=== PATIENT | male | born 1995 | race Two or more races ===

== ENCOUNTER 2024-05-11 12:31 | Emergency (ER) | payer BC, OTHER ==
[~2024-05-11] VITALS: Ht 175.3 cm; Wt 153.3 kg
[2024-05-11] MEDS: cloNIDine HCL 0.1 MG TAB PO ONE (12:41)
[2024-05-11] MEDS ORDERED: LISI20TA56 PO (12:41)
[2024-05-11 13:09] LABS: Basophils # (auto) 0.1 10 ^3/uL (0-0.2); Eosinophils # (auto) 0.2 10 ^3/uL (0-0.8); Hemoglobin 14.1 g/dL (13.5-17.5); Lymphocytes # (auto) 1.4 10 ^3/uL (0.4-5.4); Monocytes # (auto) 0.5 10 ^3/uL (0-1.3); Monocytes % (auto) 7.1 % (0.0-12.0); Nucleated Red Blood Cells % 0.1 %
[2024-05-11 13:12] LABS: Basophils % (auto) 1.4 % (0.0-2.0); Eosinophils % (auto) 2.7 % (0.0-7.0); Hematocrit 42.1 % (41.0-53.0); Lymphocytes % (auto) 21.6 % (10.0-50.0); Mean Corpuscular Hemoglobin 26.8 pg (28.0-32.0); Mean Corpuscular Hgb Conc. 33.4 g/dL (32.0-36.0); Mean Corpuscular Volume 80.3 fL (80.0-100.0); Neutrophils # (auto) 4.4 10 ^3/uL (1.6-8.6); Neutrophils % (auto) 67.2 % (37.0-80.0); Red Blood Cells 5.24 10^6/uL (4.5-5.90); Red Cell Distribution Width 15.5 % (11.8-14.3); White Blood Cell 6.5 10^3/uL (4.4-10.8)
[2024-05-11 13:21] LABS: Anion Gap 3 (5-15); Carbon Dioxide 30 mmol/L (20-30); Chloride 107 mmol/L (98-107); Potassium 4.6 mmol/L (3.5-5.1); Sodium 140 mmol/L (136-145)
[2024-05-11 13:22] LABS: Calcium 10.2 mg/dL (8.7-10.4)
[2024-05-11 13:27] LABS: Blood Urea Nitrogen 9 mg/dL (9-23); Glucose 105 mg/dL (74-106)
[2024-05-11 15:26] VITALS: BP 143/89; PULSE 87; RESP 20; TEMP 98.8; O2SAT 100
== END 2024-05-11 15:29 | disposition home or self-care (01) ==
LOC: ER 12:31
DX: I16.0 Hypertensive urgency (principal); I10 Essential (primary) hypertension
CPT/HCPCS: 36415; 80048; 85025; 93005